=== PATIENT | female | born 1985 | race Caucasian/White ===

== ENCOUNTER 2016-07-22 21:39 | Inpatient (IN) | payer BC ==
[~2016-07-22 21:39] MED LIST: IBUPROFEN800 M1 PO; NORCO 5/3251 TAB PO; PRENATAL TABLE1 EAC3; VOL-TAB RX TAB1 EACH PO; WAL-PROFEN200 M1 PO; ZYRTEC10 M1 PO
[2016-07-22] MEDS ORDERED: FLONASE ALLERG9.9 ML (21:52)
[2016-07-23 16:13] LABS: BASO % 0.3 % (0-2); EOS % 1.1 % (0-7); EOSINOPHIL ABSOLUTE COUNT 0.1 tho/cmm (0.0-0.7); HCT-HEMATOCRIT 34.9 % (34.0-49.0); IMMATURE GRANULOCYTES ABSOLUTE 0.04 tho/cmm (0-0.03); IMMATURE GRANULOCYTES PERCENT 0.3 % (0-0.3); LYMPH % 17.6 % (20-45); MCH (MEAN CORPUSCULAR HGB) 29.1 pg (28.0-32.0); MCHC MEAN CORPUSCULAR HGB CONC 34.4 % (32.0-36.0); MCV (MEAN CELL VOLUME) 84.7 fl (82.0-96.0); MONO % 6.6 % (0-12); MONOCYTE ABSOLUTE COUNT 0.8 tho/cmm (0.0-1.2); NEUTROPHIL ABSOLUTE COUNT 8.6 tho/cmm (1.6-8.0); NEUTROPHIL-AUTOMATED 8.6 tho/cmm (1.6-8.0); NEUTROPHILS % 74.1 % (40-80); PLATELET COUNT 132 tho/cmm (150-450); RED BLOOD COUNT 4.12 mil/cmm (4.00-5.20); RED CELL DISTRIBUTION WIDTH 13.7 % (12.4-16.4); WHITE BLOOD COUNT 11.6 tho/cmm (4.0-10.0)
[2016-07-25] MEDS ORDERED: IBUPROFEN800 M1 PO (09:48)
[2016-07-25] MEDS ORDERED: NORCO 5-325 TA1 EACH PO (09:49)
== END 2016-07-25 12:30 | DRG 775 ==
LOC: LDR 21:39 → OBGF 07-23 05:40
PROVIDERS: Advanced Practice Midwife; ADMIT Advanced Practice Midwife
PROC: 10E0XZZ Delivery of Products of Conception, External Approach (ICD-10-PCS; principal; 2016-07-23)
PROC: 0HQ9XZZ Repair Perineum Skin, External Approach (ICD-10-PCS; 2016-07-23)
DX: O48.0 Post-term pregnancy (principal); O70.0 First degree perineal laceration during delivery; Z3A.40 40 weeks gestation of pregnancy; Z37.0 Single live birth
CPT/HCPCS: J2210; J2590; J2791